=== PATIENT | male | born 1955 | race Caucasian/White ===

== ENCOUNTER 2018-11-13 07:54 | Day surgery (SDC) | payer OTHER ==
[2018-11-08 15:36] VITALS: BMI 26.9
[~2018-11-13 07:54] MED LIST: DEXAMETHASONE SOD PHOSPHATE 10 MG/ML 1 ML VIAL IV ONE; HYDROmorphone 0.5 MG/0.5 ML SYRINGE IVP PRN; LACTATED RINGERS 1,000 ML IV SCH; LIDOCAINE 1% 20 ML VIAL (10MG/ML) FOR IV START INTRADERMA PRN; MIDAZOLAM 2 MG/2 ML VIAL IV PRN; ONDANSETRON 4 MG/2 ML VIAL IVP ONE; SCOPOLAMINE 1.5MG/72HR PATCH TRANSDERM ONE; TETRACAINE 0.5% OPHTH (PF) DROPS 4 ML BTL BOTH EYES ONE; TETRACAINE 0.5% OPHTH DROPS 15 ML BTL BOTH EYES ONE
[2018-11-13] MEDS ORDERED: prednisoLONE ACETATE 1% OPHTH DROPS 5 ML BTL RIGHT EYE SCH (08:00)
[2018-11-13] MEDS: TROPICAMIDE 1% OPHTH DROPS 2 ML BTL RIGHT EYE ONE ×3 (09:20→09:43)
[2018-11-13] MEDS: PHENYLEPHRINE 2.5% OPHTH DRP 2ML OP NR ×3 (09:25→09:45)
[2018-11-13] MEDS: CYCLOPENTOLATE 1% OPHTH SOLN 2 ML BTL OP ONE ×3 (09:27→09:48)
[2018-11-13] MEDS: MOXIFLOXACIN HCL 0.5% DROPS 3 ML BTL OP ONE ×3 (09:29→09:50)
[2018-11-13 09:30] VITALS: TEMP 98
[2018-11-13] MEDS ORDERED: fentaNYL (PF) 50 MCG/ML 2 ML AMP ONE (10:14)
[2018-11-13] MEDS ORDERED: MIDAZOLAM 2 MG/2 ML VIAL ONE (10:14)
[2018-11-13] MEDS ORDERED: BALANCED SALT IRRIG SOLN COMB2 15 ML IRRIG.SOLN IRRIGATION ONE (10:19)
[2018-11-13] MEDS ORDERED: DUOVISC KIT (BLUE BOX) INTRAOCULA ONE (10:20)
[2018-11-13] MEDS ORDERED: TETRACAINE 0.5% OPHTH (PF) DROPS 4 ML BTL RIGHT EYE ONE (10:20)
[2018-11-13] MEDS ORDERED: BRIMONIDINE TARTRATE 0.2% DROPS 5 ML BTL RIGHT EYE ONE (10:21)
[2018-11-13] MEDS ORDERED: CIPROFLOXACIN 0.3% OPHTH SOLN 5 ML BTL RIGHT EYE ONE (10:23)
[2018-11-13] MEDS ORDERED: EPINEPHrine (PF) 0.5 ML in BALANCED SALT IRRIG SOLN COMB2 500 ML IRRIGATION ONE (10:24)
--- NOTE | 2018-11-13 10:45 | P.OP ---
Date of Procedure: 11/13/18 Description of Procedure: Preoperative Diagnosis: Visually significant cataract, right eye Postoperative Diagnosis: Visually significant cataract, right eye Procedure(s) Performed: Cataract extraction with intraocular lens implant, right eye Implants: B+L Akreos 21.0 D Anesthesia: local Surgeon: Darren Bond Estimated Blood Loss (ml): 0 Condition: stable Description of Procedure: The patient was identified in the preoperative holding area and informed consent was obtained. The patient understood the risks benefits alternatives and indications of cataract surgery. Patient showed the different options including intraocular lens options. The right eye was verified with the patient the patient was taken to the operating room. Patient was given IV sedation from the anesthesia team. Anesthetic drops were placed in the operative eye. The right eye was prepped and draped in usual sterile ophthalmic fashion. A lid speculum was placed in the operative eye and the microscope was swung into position. A paracentesis incision was made superiorly in the right eye. Lidocaine was injected intracameral into the anterior chamber. Viscoelastic was injected into anterior chamber and a clear corneal incision was made temporally. A cystitome and Utrata forceps were used create a continuous curvilinear capsulorrhexis. Hydrodissection cannula was then used to hydrate and rotate the lens. Phaco was then carried out to divide the lens into 4 quadrants. Quadrants were removed using phaco emulsification. The irrigation-aspiration handpiece was then used to remove the cortex. Provisc was then used to inflate the capsular bag and the intraocular lens was placed in the bag without incident . The irrigation-aspiration handpiece was then used to remove the remaining viscoelastic. The wounds were checked and found to be watertight. The pressure was checked and found to be favorable. The speculum was then removed. One drop of pred acetate and one drop of brimonidine and one drop of ciprofloxacin were placed in the operative eye. A shield was taped over the eye and the patient was taken recovery in stable condition. Patient was given instructions for post op care. Plan - Discharge Summary Discharge Rx Participant: No New Discharge Prescriptions: No Action diphenhydrAMINE [Benadryl] 50 mg PO HS HYDROcodone/APAP 10-325MG [[place] 10-325] 1 tab PO Q6HR PRN PRN Reason: Pain Gabapentin [Neurontin] 800 mg PO TID Citalopram Hydrobromide [CeleXA] 40 mg PO QAM Zolpidem [Ambien] 10 mg PO HS Amitriptyline HCl [Elavil] 50 mg PO HS ARIPiprazole [Abilify] 30 mg PO DAILY ALPRAZolam [Xanax] 0.25 mg PO BID Triamcinolone Acetonide [Triamcinolone Acetonide 0.025%] 1 applic TOPICAL DAILY Secukinumab [Cosentyx Pen] 150 mg SQ HS Metoprolol Tartrate [Lopressor] 50 mg PO QAM Aspirin [Adult Low Dose Aspirin EC] 81 mg PO DAILY Discharge Medication List ALPRAZolam [Xanax] 0.25 mg PO BID 11/08/18 [History] ARIPiprazole [Abilify] 30 mg PO DAILY 11/08/18 [History] Amitriptyline HCl [Elavil] 50 mg PO HS 11/08/18 [History] Aspirin [Adult Low Dose Aspirin EC] 81 mg PO DAILY 11/08/18 [History] Citalopram Hydrobromide [CeleXA] 40 mg PO QAM 11/08/18 [History] Gabapentin [Neurontin] 800 mg PO TID 11/08/18 [History] HYDROcodone/APAP 10-325MG [[place] 10-325] 1 tab PO Q6HR PRN 11/08/18 [History] Metoprolol Tartrate [Lopressor] 50 mg PO QAM 11/08/18 [History] Secukinumab [Cosentyx Pen] 150 mg SQ HS 11/08/18 [History] Triamcinolone Acetonide [Triamcinolone Acetonide 0.025%] 1 applic TOPICAL DAILY 11/08/18 [History] Zolpidem [Ambien] 10 mg PO HS 11/08/18 [History] diphenhydrAMINE [Benadryl] 50 mg PO HS 11/08/18 [History] Discharge Disposition: HOME SELF-CARE
[2018-11-13 10:47] VITALS: RESP 16
[2018-11-13 11:02] VITALS: BP 118/77; PULSE 61
== END 2018-11-13 11:45 | disposition home or self-care (01) ==
LOC: OR 07:54
PROVIDERS: ATTEND Ophthalmology
DX: H25.11 Age-related nuclear cataract, right eye (principal); I10 Essential (primary) hypertension; I25.10 Atherosclerotic heart disease of native coronary artery without angina pectoris; I73.9 Peripheral vascular disease, unspecified; F32.9 Major depressive disorder, single episode, unspecified; F41.9 Anxiety disorder, unspecified; I49.9 Cardiac arrhythmia, unspecified; F17.210 Nicotine dependence, cigarettes, uncomplicated; E78.5 Hyperlipidemia, unspecified; Z86.73 Personal history of transient ischemic attack (TIA), and cerebral infarction without residual deficits; Z79.82 Long term (current) use of aspirin; Z79.891 Long term (current) use of opiate analgesic; Z79.899 Other long term (current) drug therapy; Z95.1 Presence of aortocoronary bypass graft
CPT/HCPCS: 66984; V2632; J2250; J0171; J3010